=== PATIENT | female | born 1985 | race Caucasian/White ===

== ENCOUNTER 2016-11-17 18:57 | Emergency (ER) | payer OTHER ==
--- NOTE | 2016-11-17 19:45 | ED NURSING NOTES ---
Clinical Report - Nurses [facility] [address] [place] [address] 11/17/2016 18:56 Patient: RITA HERNANDEZ DISPOSITION / DISCHARGE Departure time: 1939. The patient left the Emergency Department before triage; patient was accompanied by a collective bargaining specialist. The patient appears to be alert, oriented x4, coherent and in no acute distress. Unable to locate patient. Patient paged with no response. The patient left the Emergency Department ambulatory and via private vehicle. ( paged in waiting room, staff informed pt had just left by other pt's in waiting room. registration staff concurred with statements). --19:44 Luis Fraser R.N. Locked/Released at 11/17/2016 19:45 by Luis Fraser R.N.
--- NOTE | 2016-11-17 19:45 | ED MAR SUMMARY ---
..... Medication Administration Record [facility] [address] [place], [place] [id number] Patient: RITA HERNANDEZ Visit ID: [id number] 31y, F Weight: (not available) Height/Length: (not available) BMI: (not available) ALLERGIES:
--- NOTE | 2016-11-17 19:45 | ED MED RECONCILIATION SUMMARY ---
Patient: RITA HERNANDEZ Medication Reconciliation Report [facility] VisitID: [id number] [address] [place] [address] 31y, F Registration Date/Time: 11/17/2016 Weight: (not available) Height/Length: (not available) BMI: (not available) ALLERGIES: The patient's Home Medications are listed below: Not obtained. The source(s) of the original Home Medication information: Not obtained. The following Medications were given to the patient in the Emergency Department: None. The following Medications were prescribed to the patient: None.
--- NOTE | 2016-11-17 19:45 | ED NURSING NOTES ---
Clinical Report - Nurses [facility] [address] [place] [address] 11/17/2016 18:56 Patient: RITA HERNANDEZ DISPOSITION / DISCHARGE Departure time: 1939. The patient left the Emergency Department before triage; patient was accompanied by a warp hand. The patient appears to be alert, oriented x4, coherent and in no acute distress. Unable to locate patient. Patient paged with no response. The patient left the Emergency Department ambulatory and via private vehicle. ( paged in waiting room, staff informed pt had just left by other pt's in waiting room. registration staff concurred with statements). --19:44 Luis Fraser R.N. Locked/Released at 11/17/2016 19:45 by Luis Fraser R.N.
--- NOTE | 2016-11-17 19:45 | ED MAR SUMMARY ---
..... Medication Administration Record [facility] [address] [place], [place] [id number] Patient: RITA HERNANDEZ Visit ID: [id number] 31y, F Weight: (not available) Height/Length: (not available) BMI: (not available) ALLERGIES:
--- NOTE | 2016-11-17 19:45 | ED MED RECONCILIATION SUMMARY ---
Patient: RITA HERNANDEZ Medication Reconciliation Report [facility] VisitID: [id number] [address] [place] [address] 31y, F Registration Date/Time: 11/17/2016 Weight: (not available) Height/Length: (not available) BMI: (not available) ALLERGIES: The patient's Home Medications are listed below: Not obtained. The source(s) of the original Home Medication information: Not obtained. The following Medications were given to the patient in the Emergency Department: None. The following Medications were prescribed to the patient: None.
== END 2016-11-17 19:40 | disposition left against medical advice (07) ==
LOC: ED SRH 18:57
DX: Z53.21 Procedure and treatment not carried out due to patient leaving prior to being seen by health care provider (principal)

== ENCOUNTER 2016-11-17 21:37 | Emergency (ER) | payer OTHER ==
--- NOTE | 2016-11-18 00:17 | ED NURSING NOTES ---
Clinical Report - Nurses [facility] [address] [place] [address] 11/17/2016 21:38 Patient: RITA HERNANDEZ TRIAGE Triage time 2153. Acuity: LEVEL 3. Chief Complaint: DIZZINESS, WEAKNESS, NAUSEA, BACK PAIN and LEG PAIN. --21:58 Luis Fraser R.N. 21:53 11/17/16. BP: 100/57. HR: 90. RR: 16. O2 saturation: 99%. Temp: 98.2 F. Pain level now 8/10. --21:58 Luis Fraser R.N. Weight: 60.7 kg stated. Height/Length: 67 inches Per Patient. BMI: 21. --21:58 Luis Fraser R.N. Medications None. --21:56 Luis Fraser R.N. Allergies No Known Drug Allergy. --21:56 Luis Fraser R.N. History Historian: patient. This started last night. She has had weakness. Reports muscle aches. ( last rx at 1800). 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 SOCIAL HX: Heavy tobacco smoker- less than 1 pack per day. No infectious disease exposure. FALL RISK ASSESSMENT: Fall risk assessment completed. No fall risk identified. NUTRITIONAL RISK ASSESSMENT: The nutritional risk assessment revealed no deficiencies. FUNCTIONAL ASSESSMENT: Functional assessment: no impairments noted. LEARNING NEEDS ASSESSMENT: The learning needs assessment revealed no barriers. SKIN INTEGRITY ASSESSMENT: Skin integrity risk assessment completed. No skin integrity risk identified. --21:58 Luis Fraser R.N. PROBLEMS: Conjunctival Foreign Body. Dental Caries. GI Bleeding. Diarrhea. Immunizations. LNMP - Last Normal Menstrual Period. --21:56 Luis Fraser R.N. ADDITIONAL SURGERIES: . --21:56 Luis Fraser R.N. Interventions ID band on patient. --21:58 Luis Fraser R.N. PHYSICAL ASSESSMENT Ambulatory to room. GENERAL / NEURO / PSYCH: Alert. Oriented X 4. Appears in no acute distress. HEENT: Pupils equal, round and reactive to light. No facial asymmetry noted. Mucous membranes are pink. RESPIRATORY: Respirations not labored. Breath sounds within normal limits. CVS: Capillary refill less than 2 seconds. Pulses within normal limits. SKIN: Skin intact. Skin is warm and dry. Normal skin turgor. --21:59 Luis Fraser R.N. NURSING PROGRESS NOTES Patient gowned. Head of bed elevated. Reassurance given. Patient identifiers checked. Call light placed in reach. Bed placed in lowest position. Brakes of bed on. --22:00 Luis Fraser R.N. DISPOSITION / DISCHARGE Departure time: 0030. Condition at departure: improved. No learning barriers present. Discharge instructions provided and reviewed with textile dyer and the patient. Reviewed warnings. Reviewed medication(s). Treatments reviewed. Reviewed referrals. Activity restrictions reviewed. Patient and textile dyer verbalized understanding. Written instructions provided in Malay. The patient was discharged by the physician. She was discharged home and accompanied by textile dyer. She left the Emergency Department ambulatory and via private vehicle. Documentation Analyst driving. --00:34 Luis Fraser R.N. 00:33 11/18/16. BP: 108/55. HR: 66. RR: 16. O2 saturation: 99%. Temp: 98 F. Pain level now 0/10. --00:34 Luis Fraser R.N. Locked/Released at 11/18/2016 0:34 by Luis Fraser R.N.
--- NOTE | 2016-11-18 00:17 | ED CLINICAL REPORT ---
Clinical Report - Physicians/Mid Levels [facility] [address] [place] [address] 11/17/2016 21:38 Patient: RITA HERNANDEZ Time Seen: 00:15. Arrived- By private vehicle. Historian- patient. HISTORY OF PRESENT ILLNESS Chief Complaint: LOWER EXTREMITY PAIN. Severity is described as being moderate. The quality is noted to be "pain". This started several days ago and is still present. Symptoms located in the area of the right thigh, left thigh, right knee, right leg, right foot, left knee, left leg and left foot. The patient has not had redness. No swelling, bladder dysfunction, bowel dysfunction, sensory loss or motor loss. No difficulty walking. Patient denies an injury. REVIEW OF SYSTEMS No chest pain, difficulty breathing or abdominal pain. PAST HISTORY ( PCP: PROBLEMS: ADDITIONAL SURGERIES: .). SOCIAL HISTORY Current every day smoker. ADDITIONAL NOTES The nursing notes have been reviewed. PHYSICAL EXAM Vital Signs: 11/18/2016 00:33 BP: 108/55. HR: 66. RR: 16. O2 saturation: 99%. Temp: 98 F. 11/17/2016 21:53 BP: 100/57. HR: 90. RR: 16. O2 saturation: 99%. Temp: 98.2 F. Appearance: Alert. No acute distress. CVS: Heart sounds normal. Respiratory: No respiratory distress. Breath sounds normal. Abdomen: Soft and nontender. Skin: (Moderate facial skin picking lesions). Extremities: Lower extremities exhibit normal ROM. No lower extremity edema. No signs of infection involving the lower extremities. No lower extremity edema. No calf tenderness. Extremities otherwise negative. Neuro, Vascular and Tendons: No pulse deficit present. Lower extremity capillary refill not prolonged. PROGRESS AND PROCEDURES Course of Care: No clinical evidence of infection, injury or arterial or venous disease. Disposition: Discharged. Condition: stable. CLINICAL IMPRESSION Lower extremity pain. INSTRUCTIONS (NO DANGEROUS CLOT, INFECTION OR INJURY NOTED). Prescription Medications: Ibuprofen 600 mg tablets: every 8 hours for 5 days. Dispense twenty-five (25). No refill. Understanding of the discharge instructions verbalized by patient. Follow-up with: [facility], , , [address], , [place], [address] (Electronically signed by Claude Celaya MD 11/20/2016 21:08)
--- NOTE | 2016-11-18 00:17 | ED CLINICAL REPORT ---
Clinical Report - Physicians/Mid Levels [facility] [address] [place] [address] 11/17/2016 21:38 Patient: RITA HERNANDEZ Time Seen: 00:15. Arrived- By private vehicle. Historian- patient. HISTORY OF PRESENT ILLNESS Chief Complaint: LOWER EXTREMITY PAIN. Severity is described as being moderate. The quality is noted to be "pain". This started several days ago and is still present. Symptoms located in the area of the right thigh, left thigh, right knee, right leg, right foot, left knee, left leg and left foot. The patient has not had redness. No swelling, bladder dysfunction, bowel dysfunction, sensory loss or motor loss. No difficulty walking. Patient denies an injury. REVIEW OF SYSTEMS No chest pain, difficulty breathing or abdominal pain. PAST HISTORY ( PCP: PROBLEMS: ADDITIONAL SURGERIES: .). SOCIAL HISTORY Current every day smoker. ADDITIONAL NOTES The nursing notes have been reviewed. PHYSICAL EXAM Vital Signs: 11/18/2016 00:33 BP: 108/55. HR: 66. RR: 16. O2 saturation: 99%. Temp: 98 F. 11/17/2016 21:53 BP: 100/57. HR: 90. RR: 16. O2 saturation: 99%. Temp: 98.2 F. Appearance: Alert. No acute distress. CVS: Heart sounds normal. Respiratory: No respiratory distress. Breath sounds normal. Abdomen: Soft and nontender. Skin: (Moderate facial skin picking lesions). Extremities: Lower extremities exhibit normal ROM. No lower extremity edema. No signs of infection involving the lower extremities. No lower extremity edema. No calf tenderness. Extremities otherwise negative. Neuro, Vascular and Tendons: No pulse deficit present. Lower extremity capillary refill not prolonged. PROGRESS AND PROCEDURES Course of Care: No clinical evidence of infection, injury or arterial or venous disease. Disposition: Discharged. Condition: stable. CLINICAL IMPRESSION Lower extremity pain. INSTRUCTIONS (NO DANGEROUS CLOT, INFECTION OR INJURY NOTED). Prescription Medications: Ibuprofen 600 mg tablets: every 8 hours for 5 days. Dispense twenty-five (25). No refill. Understanding of the discharge instructions verbalized by patient. Follow-up with: [facility], , , [address], , [place], [address] (Electronically signed by Claude Celaya MD 11/20/2016 21:08)
--- NOTE | 2016-11-18 00:17 | ED NURSING NOTES ---
Clinical Report - Nurses [facility] [address] [place] [address] 11/17/2016 21:38 Patient: RITA HERNANDEZ TRIAGE Triage time 2153. Acuity: LEVEL 3. Chief Complaint: DIZZINESS, WEAKNESS, NAUSEA, BACK PAIN and LEG PAIN. --21:58 Luis Fraser R.N. 21:53 11/17/16. BP: 100/57. HR: 90. RR: 16. O2 saturation: 99%. Temp: 98.2 F. Pain level now 8/10. --21:58 Luis Fraser R.N. Weight: 60.7 kg stated. Height/Length: 67 inches Per Patient. BMI: 21. --21:58 Luis Fraser R.N. Medications None. --21:56 Luis Fraser R.N. Allergies No Known Drug Allergy. --21:56 Luis Fraser R.N. History Historian: patient. This started last night. She has had weakness. Reports muscle aches. ( last rx at 1800). 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 SOCIAL HX: Heavy tobacco smoker- less than 1 pack per day. No infectious disease exposure. FALL RISK ASSESSMENT: Fall risk assessment completed. No fall risk identified. NUTRITIONAL RISK ASSESSMENT: The nutritional risk assessment revealed no deficiencies. FUNCTIONAL ASSESSMENT: Functional assessment: no impairments noted. LEARNING NEEDS ASSESSMENT: The learning needs assessment revealed no barriers. SKIN INTEGRITY ASSESSMENT: Skin integrity risk assessment completed. No skin integrity risk identified. --21:58 Luis Fraser R.N. PROBLEMS: Conjunctival Foreign Body. Dental Caries. GI Bleeding. Diarrhea. Immunizations. LNMP - Last Normal Menstrual Period. --21:56 Luis Fraser R.N. ADDITIONAL SURGERIES: . --21:56 Luis Fraser R.N. Interventions ID band on patient. --21:58 Luis Fraser R.N. PHYSICAL ASSESSMENT Ambulatory to room. GENERAL / NEURO / PSYCH: Alert. Oriented X 4. Appears in no acute distress. HEENT: Pupils equal, round and reactive to light. No facial asymmetry noted. Mucous membranes are pink. RESPIRATORY: Respirations not labored. Breath sounds within normal limits. CVS: Capillary refill less than 2 seconds. Pulses within normal limits. SKIN: Skin intact. Skin is warm and dry. Normal skin turgor. --21:59 Luis Fraser R.N. NURSING PROGRESS NOTES Patient gowned. Head of bed elevated. Reassurance given. Patient identifiers checked. Call light placed in reach. Bed placed in lowest position. Brakes of bed on. --22:00 Luis Fraser R.N. DISPOSITION / DISCHARGE Departure time: 0030. Condition at departure: improved. No learning barriers present. Discharge instructions provided and reviewed with financial analysis advisor and the patient. Reviewed warnings. Reviewed medication(s). Treatments reviewed. Reviewed referrals. Activity restrictions reviewed. Patient and financial analysis advisor verbalized understanding. Written instructions provided in Maltese. The patient was discharged by the physician. She was discharged home and accompanied by financial analysis advisor. She left the Emergency Department ambulatory and via private vehicle. Door To Door Sales Representative driving. --00:34 Luis Fraser R.N. 00:33 11/18/16. BP: 108/55. HR: 66. RR: 16. O2 saturation: 99%. Temp: 98 F. Pain level now 0/10. --00:34 Luis Fraser R.N. Locked/Released at 11/18/2016 0:34 by Luis Fraser R.N.
--- NOTE | 2016-11-20 21:08 | ED MED RECONCILIATION SUMMARY ---
Patient: RITA HERNANDEZ Medication Reconciliation Report [facility] VisitID: [id number] [place] [address] 31y, F Registration Date/Time: 11/17/2016 Weight: 60.7 kg Height/Length: 67 in. BMI: 21.0 ALLERGIES: No Known Drug Allergy The patient's Home Medications are listed below: NONE. The source(s) of the original Home Medication information: Not obtained. The following Medications were given to the patient in the Emergency Department: None. The following Medications were prescribed to the patient: Ibuprofen 600 mg tablets: every 8 hours for 5 days. Dispense twenty-five (25). No refill. -- Claude Celaya MD
--- NOTE | 2016-11-20 21:08 | ED DISCHARGE INSTRUCTIONS ---
Patient: RITA HERNANDEZ General Instructions [facility] VisitID: [id number] [address], [place] [address] 31y, F Registration Date/Time: 11/17/2016 Lower extremity pain. INSTRUCTIONS (NO DANGEROUS CLOT, INFECTION OR INJURY NOTED). Prescription Medications: Ibuprofen 600 mg tablets: every 8 hours for 5 days. Dispense twenty-five (25). No refill. Understanding of the discharge instructions verbalized by patient. Follow-up with: [facility], , , [address], , [place], [address] ADDITIONAL INFORMATION Ibuprofen Oral tablet What is this medicine? IBUPROFEN (eye BYOO proe fen) is a non-steroidal anti-inflammatory drug (NSAID). It is used for dental pain, fever, headaches or migraines, osteoarthritis, rheumatoid arthritis, or painful monthly periods. It can also relieve minor aches and pains caused by a cold, flu, or sore throat. How should I use this medicine? Take this medicine by mouth with a glass of water. Follow the directions on the prescription label. Take this medicine with food if your stomach gets upset. Try to not lie down for at least 10 minutes after you take the medicine. Take your medicine at regular intervals. Do not take your medicine more often than directed. A special MedGuide will be given to you by the pharmacist with each prescription and refill. Be sure to read this information carefully each time. Talk to your director toxicology regarding the use of this medicine in children. Special care may be needed. What side effects may I notice from receiving this medicine? Side effects that you should report to your doctor or health physician assistant primary care as soon as possible: allergic reactions like skin rash, itching or hives, swelling of the face, lips, or tongue black or bloody stools, blood in the urine or in vomit breathing problems changes in vision chest pain general ill feeling or flu-like symptoms nausea or vomiting redness, blistering, peeling or loosening of the skin, including inside the mouth slurred speech or weakness on one side of the body stomach pain unexplained weight gain or swelling unusually weak or tired yellowing of eyes or skin Side effects that usually do not require medical attention (report to your doctor or health physician assistant primary care if they continue or are bothersome): constipation or diarrhea dizziness gas or heartburn stomach upset What may interact with this medicine? Do not take this medicine with any of the following medications: cidofovir ketorolac methotrexate pemetrexed This medicine may also interact with the following medications: alcohol aspirin diuretics lithium other drugs for inflammation like prednisone warfarin What if I miss a dose? If you miss a dose, take it as soon as you can. If it is almost time for your next dose, take only that dose. Do not take double or extra doses. Where should I keep my medicine? Keep out of the reach of children. Store at room temperature between 15 and 30 degrees C (59 and 86 degrees F). Keep container tightly closed. Throw away any unused medicine after the expiration date. What should I tell my health care provider before I take this medicine? They need to know if you have any of these conditions: asthma cigarette smoker drink more than 3 alcohol containing drinks a day heart disease or circulation problems such as heart failure or leg edema (fluid retention) high blood pressure kidney disease liver disease stomach bleeding or ulcers an unusual or allergic reaction to ibuprofen, aspirin, other NSAIDS, other medicines, foods, dyes, or preservatives or trying to get breast-feeding What should I watch for while using this medicine? Tell your doctor or healthcare professional if your symptoms do not start to get better or if they get worse. This medicine does not prevent heart attack or stroke. In fact, this medicine may increase the chance of a heart attack or stroke. The chance may increase with longer use of this medicine and in people who have heart disease. If you take aspirin to prevent heart attack or stroke, talk with your doctor or health physician assistant primary care. Do not take other medicines that contain aspirin, ibuprofen, or naproxen with this medicine. Side effects such as stomach upset, nausea, or ulcers may be more likely to occur. Many medicines available without a prescription should not be taken with this medicine. This medicine can cause ulcers and bleeding in the stomach and intestines at any time during treatment. Ulcers and bleeding can happen without warning symptoms and can cause . To reduce your risk, do not smoke cigarettes or drink alcohol while you are taking this medicine. You may get drowsy or dizzy. Do not drive, use machinery, or do anything that needs mental alertness until you know how this medicine affects you. Do not stand or sit up quickly, especially if you are an older patient. This reduces the risk of dizzy or fainting spells. This medicine can cause you to bleed more easily. Try to avoid damage to your teeth and gums when you brush or floss your teeth. You have been given the following additional information: Ibuprofen Oral tablet (Electronically signed by Claude Celyaa MD 11/20/2016 21:08)
--- NOTE | 2016-11-20 21:08 | ED MAR SUMMARY ---
..... Medication Administration Record [facility] [address] [place], [place] [id number] Patient: RITA HERNANDEZ Visit ID: [id number] 31y, F Weight: 60.7 kg Height/Length: 67 in BMI: 21 ALLERGIES: No Known Drug Allergy
--- NOTE | 2016-11-20 21:08 | ED DISCHARGE INSTRUCTIONS ---
Patient: RITA HERNANDEZ General Instructions [facility] VisitID: [id number] [address], [place] [address] 31y, F Registration Date/Time: 11/17/2016 Lower extremity pain. INSTRUCTIONS (NO DANGEROUS CLOT, INFECTION OR INJURY NOTED). Prescription Medications: Ibuprofen 600 mg tablets: every 8 hours for 5 days. Dispense twenty-five (25). No refill. Understanding of the discharge instructions verbalized by patient. Follow-up with: [facility], , , [address], , [place], [address] ADDITIONAL INFORMATION Ibuprofen Oral tablet What is this medicine? IBUPROFEN (eye BYOO proe fen) is a non-steroidal anti-inflammatory drug (NSAID). It is used for dental pain, fever, headaches or migraines, osteoarthritis, rheumatoid arthritis, or painful monthly periods. It can also relieve minor aches and pains caused by a cold, flu, or sore throat. How should I use this medicine? Take this medicine by mouth with a glass of water. Follow the directions on the prescription label. Take this medicine with food if your stomach gets upset. Try to not lie down for at least 10 minutes after you take the medicine. Take your medicine at regular intervals. Do not take your medicine more often than directed. A special MedGuide will be given to you by the pharmacist with each prescription and refill. Be sure to read this information carefully each time. Talk to your lens blocker regarding the use of this medicine in children. Special care may be needed. What side effects may I notice from receiving this medicine? Side effects that you should report to your doctor or health senior caregiver as soon as possible: allergic reactions like skin rash, itching or hives, swelling of the face, lips, or tongue black or bloody stools, blood in the urine or in vomit breathing problems changes in vision chest pain general ill feeling or flu-like symptoms nausea or vomiting redness, blistering, peeling or loosening of the skin, including inside the mouth slurred speech or weakness on one side of the body stomach pain unexplained weight gain or swelling unusually weak or tired yellowing of eyes or skin Side effects that usually do not require medical attention (report to your doctor or health senior caregiver if they continue or are bothersome): constipation or diarrhea dizziness gas or heartburn stomach upset What may interact with this medicine? Do not take this medicine with any of the following medications: cidofovir ketorolac methotrexate pemetrexed This medicine may also interact with the following medications: alcohol aspirin diuretics lithium other drugs for inflammation like prednisone warfarin What if I miss a dose? If you miss a dose, take it as soon as you can. If it is almost time for your next dose, take only that dose. Do not take double or extra doses. Where should I keep my medicine? Keep out of the reach of children. Store at room temperature between 15 and 30 degrees C (59 and 86 degrees F). Keep container tightly closed. Throw away any unused medicine after the expiration date. What should I tell my health care provider before I take this medicine? They need to know if you have any of these conditions: asthma cigarette smoker drink more than 3 alcohol containing drinks a day heart disease or circulation problems such as heart failure or leg edema (fluid retention) high blood pressure kidney disease liver disease stomach bleeding or ulcers an unusual or allergic reaction to ibuprofen, aspirin, other NSAIDS, other medicines, foods, dyes, or preservatives or trying to get breast-feeding What should I watch for while using this medicine? Tell your doctor or healthcare professional if your symptoms do not start to get better or if they get worse. This medicine does not prevent heart attack or stroke. In fact, this medicine may increase the chance of a heart attack or stroke. The chance may increase with longer use of this medicine and in people who have heart disease. If you take aspirin to prevent heart attack or stroke, talk with your doctor or health senior caregiver. Do not take other medicines that contain aspirin, ibuprofen, or naproxen with this medicine. Side effects such as stomach upset, nausea, or ulcers may be more likely to occur. Many medicines available without a prescription should not be taken with this medicine. This medicine can cause ulcers and bleeding in the stomach and intestines at any time during treatment. Ulcers and bleeding can happen without warning symptoms and can cause . To reduce your risk, do not smoke cigarettes or drink alcohol while you are taking this medicine. You may get drowsy or dizzy. Do not drive, use machinery, or do anything that needs mental alertness until you know how this medicine affects you. Do not stand or sit up quickly, especially if you are an older patient. This reduces the risk of dizzy or fainting spells. This medicine can cause you to bleed more easily. Try to avoid damage to your teeth and gums when you brush or floss your teeth. You have been given the following additional information: Ibuprofen Oral tablet (Electronically signed by Claude Celaya MD 11/20/2016 21:08)
--- NOTE | 2016-11-20 21:08 | ED MED RECONCILIATION SUMMARY ---
Patient: RITA HERNANDEZ Medication Reconciliation Report [facility] VisitID: [id number] [place] [address] 31y, F Registration Date/Time: 11/17/2016 Weight: 60.7 kg Height/Length: 67 in. BMI: 21.0 ALLERGIES: No Known Drug Allergy The patient's Home Medications are listed below: NONE. The source(s) of the original Home Medication information: Not obtained. The following Medications were given to the patient in the Emergency Department: None. The following Medications were prescribed to the patient: Ibuprofen 600 mg tablets: every 8 hours for 5 days. Dispense twenty-five (25). No refill. -- Claude Celaya MD
--- NOTE | 2016-11-20 21:08 | ED MAR SUMMARY ---
..... Medication Administration Record [facility] [address] [place] [id number] Patient: RITA HERNANDEZ Visit ID: [id number] 31y, F Weight: 60.7 kg Height/Length: 67 in BMI: 21 ALLERGIES: No Known Drug Allergy
== END 2016-11-18 00:30 | disposition home or self-care (01) ==
LOC: ED SRH 21:37
DX: M79.651 Pain in right thigh (principal); M79.652 Pain in left thigh; F17.200 Nicotine dependence, unspecified, uncomplicated